=== PATIENT | female | born 1970 | race Caucasian/White ===

== ENCOUNTER → 2024-02-19 16:27 | Outpatient (REF) | payer OTHER, SELFPAY | LOC: RAD 16:27 | PROVIDERS: ATTENDING PHYSICIAN Surgery; FAMILY PHYSICIAN Nurse Practitioner | DX: N20.0 Calculus of kidney (principal) | CPT/HCPCS: 74176 ==

== ENCOUNTER 2024-05-23 06:17 | Day surgery (SDC) | payer OTHER, SELFPAY ==
[2024-05-12 08:33] VITALS: BMI 40.7
[2024-05-12 08:56] LABS: Hematocrit 43.4 % (37.0-47.0); Hemoglobin 14.5 g/dL (12.0-16.0); Mean Corp Hgb Conc. 33.4 g/dL (33.0-37.0); Mean Corpuscular Hgb 30.8 pg (27.0-31.0); Mean Corpuscular Volume 92.1 fL (81.0-99.0); Mean Platelet Volume 10.8 fL (7.4-10.4); Platelet Count 182 10^3/uL (130-400); Red Blood Cell Count 4.71 10^6/uL (4.20-5.40); Red Cell Dist. Width 13.1 % (11.5-14.5); White Blood Cell Count 6.1 10^3/uL (4.8-10.8)
[2024-05-12 10:18] LABS: Blood Urea Nitrogen 16 mg/dl (7-17); Calcium 9.4 mg/dl (8.4-10.2); Carbon Dioxide 27 mmol/L (22-30); Chloride 102 mmol/L (98-107); Estimated Creatinine Clearance 73 ml/min; Glucose 99 mg/dl (70-99); Potassium 4.4 mmol/L (3.5-5.1); Sodium 141 mmol/L (135-145); eGFR > 60.00
[2024-05-23] VITALS (10 sets, daily range): BP systolic 106–134; BP diastolic 58–78; BMI 40.7
[2024-05-23] MEDS: Pyridium 200 MG PO (11:08)
[2024-05-23] MEDS: ZOFRAN 4 MG IV (15:22)
== END 2024-05-23 16:59 | disposition home or self-care (01) ==
LOC: SDS 06:17
PROVIDERS: ATTENDING PHYSICIAN Obstetrics & Gynecology; FAMILY PHYSICIAN Physician Assistant
PROC: 0TSD0ZZ Reposition Urethra, Open Approach (ICD-10-PCS; 2024-05-23)
PROC: 0JQC0ZZ Repair Pelvic Region Subcutaneous Tissue and Fascia, Open Approach (ICD-10-PCS; 2024-05-23)
DX: N81.11 Cystocele, midline (principal); N39.43 Post-void dribbling
CPT/HCPCS: 57240; 57288; 80048; 85027; 93005

== ENCOUNTER → 2025-01-23 07:25 | Outpatient (REF) | payer OTHER, SELFPAY | LOC: RAD 07:25 | PROVIDERS: ATTENDING PHYSICIAN Surgery; FAMILY PHYSICIAN Physician Assistant | DX: N20.0 Calculus of kidney (principal) | CPT/HCPCS: 76775 ==